=== PATIENT | male | born 1975 | race Caucasian/White ===

== ENCOUNTER 2021-02-25 03:29 | Emergency (ER) | payer OTHER ==
[2021-02-25] MEDS ORDERED: NEOMYCIN-POLYMY10 M1 AD (04:04)
== END 2021-02-25 04:18 | disposition home or self-care (01) ==
LOC: FER 03:29
DX: T16.1XXA Foreign body in right ear, initial encounter (principal); F17.210 Nicotine dependence, cigarettes, uncomplicated; E11.638 Type 2 diabetes mellitus with other oral complications; I10 Essential (primary) hypertension; Z88.6 Allergy status to analgesic agent; Z79.899 Other long term (current) drug therapy; X58.XXXA Exposure to other specified factors, initial encounter

== ENCOUNTER 2021-06-18 02:13 | Emergency (ER) | payer OTHER ==
[~2021-06-18 02:13] MED LIST: NEOMYCIN-POLYMY10 M1 AD
[2021-06-18 03:14] LABS: BASOPHIL 0.3 % (0-2); EOSINOPHIL 1.1 % (0-5); HCT 40.9 % (42.0-52.0); HGB 14.7 g/dl (13.2-18.0); LYMPHOCYTE 18.5 % (15-48); MCH 32.7 pg (25.0-31.0); MCHC 35.9 g/dL (32.0-36.0); MCV 90.9 fL (78.0-100.0); MONOCYTE 4.3 % (0-12); MPV 9.3 fL (6.0-9.5); NEUTROPHIL 74.5 % (41-80); NRBC 0; PLT 237 K/uL (150-400)
[2021-06-18 03:20] LABS: INR 1.05 (0.9-1.2); PROTHROMBIN TIME 13.1 SECONDS (11.8-13.4); PTT 31.6 SECONDS (24.4-34.7)
[2021-06-18 03:35] LABS: CORONAVIRUS 2019 SARS-COV-2 NEGATIVE (NEGATIVE); INFLUENZA A NAA NEGATIVE (NEGATIVE)
[2021-06-18 03:36] LABS: ALBUMIN 4.5 g/dL (3.4-5.0); ALKALINE PHOSHATASE 76 U/L (46-116); ALT 30 U/L (16-63); AST 32 U/L (15-37); BILIRUBIN - TOTAL 0.5 mg/dL (0.2-1.0); BUN 20 mg/dL (7-18); BUN/CREAT RATIO (CALC) 14.5 RATIO; CHLORIDE 98 mmol/L (98-107); CO2 (BICARBONATE) 25 mmol/L (21-32); CPK 506 U/L (39-308); CREATININE 1.38 mg/dL (0.67-1.17); GLOBULIN (CALCULATION) 3.9 g/dL; GLUCOSE 185 mg/dL (74-106); POTASSIUM 3.9 mmol/L (3.5-5.1); TOTAL PROTEIN 8.4 g/dL (6.4-8.2)
== END 2021-06-18 06:25 | disposition other institution (70) ==
LOC: FER 02:13
PROVIDERS: Emergency Medicine Emergency Medical Services
DX: G45.9 Transient cerebral ischemic attack, unspecified (principal); R29.700 NIHSS score 0; I10 Essential (primary) hypertension; E11.9 Type 2 diabetes mellitus without complications; F17.210 Nicotine dependence, cigarettes, uncomplicated; Z88.6 Allergy status to analgesic agent; Z20.822 Contact with and (suspected) exposure to COVID-19
CPT/HCPCS: 36415; 70450; 71045; 80053; 82550; 84439; 84443; 84481; 84484; 85025; 85610; 85730; 93005; G0480; J7030; U0002